=== PATIENT | male | born 1975 | race Caucasian/White ===

== ENCOUNTER 2016-11-19 01:22 | Emergency (ER) | payer SELFPAY ==
[~2016-11-19] VITALS: Ht 185.4 cm; Wt 95.8 kg
[~2016-11-19 01:22] MED LIST: FLOMAX0.4 MG PO; MOBIC15 MG PO; MOTRIN600 MG PO; PERCOCET 5/31 TABLET PO
[2016-11-19 01:24] VITALS: BP 194/115
[2016-11-19] MEDS ORDERED: PEN-VEE K,VEET500 MG PO (03:15)
[2016-11-19] MEDS ORDERED: PERCOCET 5/31 TABLET PO (03:16)
== END 2016-11-19 03:52 | disposition home or self-care (01) ==
LOC: EME 01:22
PROC: 3E0T3BZ Introduction of Anesthetic Agent into Peripheral Nerves and Plexi, Percutaneous Approach (ICD-10-PCS; principal; 2016-11-19)
DX: K08.89 Other specified disorders of teeth and supporting structures (principal); K03.81 Cracked tooth; K02.9 Dental caries, unspecified; F17.200 Nicotine dependence, unspecified, uncomplicated
CPT/HCPCS: 99281; 99283; S0020